=== PATIENT | male | born 1945 | race Caucasian/White ===

== ENCOUNTER 2016-03-04 10:37 | Outpatient (CLI) | payer MEDICARE | END 2016-03-04 10:38 | disposition home or self-care (01) | DX: Z12.5 Encounter for screening for malignant neoplasm of prostate (principal); F52.21 Male erectile disorder; E03.9 Hypothyroidism, unspecified | CPT/HCPCS: 36415; 84403; 84443; G0103 ==

== ENCOUNTER 2016-03-23 13:37 | Outpatient (CLI) | payer MEDICARE | END 2016-03-23 13:38 | disposition home or self-care (01) | DX: G47.30 Sleep apnea, unspecified (principal); G47.8 Other sleep disorders; G47.10 Hypersomnia, unspecified; R06.83 Snoring; R51 Headache | CPT/HCPCS: 99203; G0463 ==

== ENCOUNTER 2016-04-21 21:46 | Outpatient (CLI) | payer MEDICARE | END 2016-04-21 21:47 | disposition home or self-care (01) | LOC: SC 21:46 | PROVIDERS: ATTEND Internal Medicine Pulmonary Disease | DX: G47.33 Obstructive sleep apnea (adult) (pediatric) (principal); I48.1 Persistent atrial fibrillation | CPT/HCPCS: 95810 ==

== ENCOUNTER 2016-05-03 09:55 | Outpatient (CLI) | payer MEDICARE | END 2016-05-03 09:56 | disposition home or self-care (01) | DX: G47.33 Obstructive sleep apnea (adult) (pediatric) (principal) | CPT/HCPCS: 99213; G0463 ==

== ENCOUNTER 2016-06-28 14:14 | Outpatient (CLI) | payer MEDICARE | END 2016-06-28 14:15 | disposition home or self-care (01) | DX: G47.33 Obstructive sleep apnea (adult) (pediatric) (principal) | CPT/HCPCS: 99213; G0463 ==

== ENCOUNTER 2016-07-22 14:08 | Outpatient (CLI) | payer MEDICARE | END 2016-07-22 14:09 | disposition home or self-care (01) | LOC: SC 14:08 | PROVIDERS: ATTEND Internal Medicine Pulmonary Disease | DX: G47.33 Obstructive sleep apnea (adult) (pediatric) (principal) | CPT/HCPCS: 99213; G0463; 99212 ==

== ENCOUNTER 2016-08-31 13:17 | Outpatient (CLI) | payer MEDICARE | END 2016-08-31 13:18 | disposition home or self-care (01) | LOC: SC 13:17 | PROVIDERS: ATTEND Nurse Practitioner Family | DX: G47.33 Obstructive sleep apnea (adult) (pediatric) (principal) | CPT/HCPCS: 99214; G0463; 99212 ==

== ENCOUNTER 2016-09-02 22:58 | Outpatient (CLI) | payer MEDICARE | END 2016-09-02 22:59 | disposition home or self-care (01) | LOC: SC 22:58 | PROVIDERS: ATTEND Internal Medicine Pulmonary Disease | DX: G47.33 Obstructive sleep apnea (adult) (pediatric) (principal); G47.61 Periodic limb movement disorder; I48.91 Unspecified atrial fibrillation; I49.3 Ventricular premature depolarization; Z68.21 Body mass index [BMI] 21.0-21.9, adult | CPT/HCPCS: 95811 ==

== ENCOUNTER 2017-02-08 08:00 | Outpatient (CLI) | payer MEDICARE | END 2017-02-08 08:01 | disposition home or self-care (01) | LOC: LAB.WCP 08:00 | PROVIDERS: ATTEND Family Medicine | DX: E03.9 Hypothyroidism, unspecified (principal) | CPT/HCPCS: 36415; 84443 ==

== ENCOUNTER 2017-03-15 15:03 | Outpatient (CLI) | payer MEDICARE | END 2017-03-15 15:04 | disposition home or self-care (01) | LOC: SC 15:03 | PROVIDERS: ATTEND Nurse Practitioner Family | DX: G47.33 Obstructive sleep apnea (adult) (pediatric) (principal) | CPT/HCPCS: 99214; G0463; 99212 ==

== ENCOUNTER 2017-04-27 15:26 | Outpatient (CLI) | payer MEDICARE | END 2017-04-27 15:27 | disposition home or self-care (01) | LOC: SC 15:26 | PROVIDERS: ATTEND Nurse Practitioner Family | DX: G47.33 Obstructive sleep apnea (adult) (pediatric) (principal); R06.00 Dyspnea, unspecified | CPT/HCPCS: 99214; G0463; 99212 ==

== ENCOUNTER 2017-07-27 15:14 | Outpatient (CLI) | payer MEDICARE | END 2017-07-27 15:15 | disposition home or self-care (01) | LOC: SC 15:14 | PROVIDERS: ATTEND Nurse Practitioner Family | DX: G47.33 Obstructive sleep apnea (adult) (pediatric) (principal) | CPT/HCPCS: 99214; G0463; 99212 ==

== ENCOUNTER 2017-08-24 15:12 | Outpatient (CLI) | payer MEDICARE | END 2017-08-24 15:13 | disposition home or self-care (01) | LOC: SC 15:12 | PROVIDERS: ATTEND Nurse Practitioner Family | DX: G47.33 Obstructive sleep apnea (adult) (pediatric) (principal); G47.52 REM sleep behavior disorder | CPT/HCPCS: 99214; G0463; 99212 ==

== ENCOUNTER 2017-12-01 13:32 | Outpatient (CLI) | payer MEDICARE | END 2017-12-01 13:33 | disposition home or self-care (01) | LOC: SC 13:32 | PROVIDERS: ATTEND Nurse Practitioner Family | DX: G47.33 Obstructive sleep apnea (adult) (pediatric) (principal); G47.52 REM sleep behavior disorder | CPT/HCPCS: 99214; G0463; 99212 ==

== ENCOUNTER 2018-01-12 14:44 | Outpatient (CLI) | payer MEDICARE ==
[2018-01-12 19:57] LABS: BASOPHILS % (AUTO) 0.5 %; EOSINOPHILS # (AUTO) 0.1 10^3/uL (0.0-0.7); HGB - HEMOGLOBIN 11.8 g/dL (14.0-18.0); LYMPHOCYTES # (AUTO) 1.2 10^3/uL (1.5-3.5); LYMPHOCYTES % (AUTO) 19.2 %; MEAN CORPUSCULAR HEMOGLOBIN 29.5 pg (27.0-31.0); MEAN CORPUSCULAR HGB CONC 31.7 g/dL (32.0-36.0); MEAN CORPUSCULAR VOLUME 93.2 fL (80.0-94.0); MONOCYTES # (AUTO) 0.5 10^3/uL (0.0-1.0); MONOCYTES % (AUTO) 7.4 %; NEUTROPHILS # (AUTO) 4.4 10^3/uL (1.5-6.6); NEUTROPHILS % (AUTO) 71.9 %; PLT - PLATELET COUNT 130 10^3/uL (130-450); RED CELL DISTRIBUTION WIDTH 14.5 % (12.0-15.0); WHITE BLOOD COUNT 6.2 x10^3/uL (4.8-10.8)
[2018-01-12 20:18] LABS: ALBUMIN 4.4 g/dL (3.2-5.5); ALBUMIN/GLOBULIN RATIO 1.5 (1.0-2.2); ALKALINE PHOSPHATASE 103 IU/L (42-121); ALT ALANINE AMINOTRANSFERASE 10 IU/L (10-60); AST ASPARTATE AMINOTRANSFERASE 31 IU/L (10-42); BILIRUBIN,TOTAL 0.8 mg/dL (0.2-1.0); BUN - BLOOD UREA NITROGEN 22 mg/dL (6-20); CALCIUM 8.4 mg/dL (8.5-10.3); CARBON DIOXIDE - CO2 30 mmol/L (21-32); CHLORIDE 104 mmol/L (101-111); CHOLESTEROL 157 mg/dL; GFR - MDRD 74 (>89); GLUCOSE 89 mg/dL (70-100); HDL CHOLESTEROL 53 mg/dL; LDL CHOLESTEROL,CALCULATED 93 mg/dL; LDL/HDL RATIO 1.8 (<3.6); SODIUM 139 mmol/L (135-145); TOTAL PROTEIN 7.4 g/dL (6.7-8.2); VLDL CHOLESTEROL 11 mg/dL
== END 2018-01-12 23:59 | disposition home or self-care (01) ==
LOC: LAB.WCP 14:44
PROVIDERS: ATTEND Family Medicine
DX: R63.4 Abnormal weight loss (principal); E03.9 Hypothyroidism, unspecified; R25.1 Tremor, unspecified; J44.9 Chronic obstructive pulmonary disease, unspecified; Z13.220 Encounter for screening for lipoid disorders; Z87.19 Personal history of other diseases of the digestive system; I48.0 Paroxysmal atrial fibrillation; D64.9 Anemia, unspecified
CPT/HCPCS: 36415; 80053; 80061; 83721; 84443; 85025

== ENCOUNTER 2018-04-28 08:00 | Outpatient (CLI) | payer MEDICARE | END 2018-04-28 23:59 | disposition home or self-care (01) | LOC: LAB.WCP 08:00 | PROVIDERS: ATTEND Family Medicine | DX: I48.91 Unspecified atrial fibrillation (principal); Z79.01 Long term (current) use of anticoagulants ==

== ENCOUNTER 2018-05-19 08:00 | Outpatient (CLI) | payer MEDICARE | END 2018-05-19 23:59 | disposition home or self-care (01) | LOC: LAB.WCP 08:00 | PROVIDERS: ATTEND Family Medicine | DX: I48.0 Paroxysmal atrial fibrillation (principal); Z79.01 Long term (current) use of anticoagulants | CPT/HCPCS: 81025 ==

== ENCOUNTER 2018-05-26 08:00 | Outpatient (CLI) | payer MEDICARE | END 2018-05-26 23:59 | disposition home or self-care (01) | LOC: LAB.WCP 08:00 | PROVIDERS: ATTEND Family Medicine | DX: I48.91 Unspecified atrial fibrillation (principal); Z79.01 Long term (current) use of anticoagulants ==

== ENCOUNTER 2018-06-02 08:00 | Outpatient (CLI) | payer MEDICARE | END 2018-06-02 23:59 | disposition home or self-care (01) | LOC: LAB.WCP 08:00 | PROVIDERS: ATTEND Family Medicine | DX: I48.91 Unspecified atrial fibrillation (principal); Z79.01 Long term (current) use of anticoagulants ==

== ENCOUNTER 2018-08-22 08:00 | Outpatient (CLI) | payer MEDICARE | END 2018-08-22 08:01 | disposition home or self-care (01) | LOC: LAB.WCP 08:00 | PROVIDERS: ATTEND Family Medicine | DX: I48.0 Paroxysmal atrial fibrillation (principal); Z79.01 Long term (current) use of anticoagulants ==

== ENCOUNTER 2018-09-15 08:00 | Outpatient (CLI) | payer MEDICARE | END 2018-09-15 23:59 | disposition home or self-care (01) | LOC: LAB.WCP 08:00 | PROVIDERS: ATTEND Family Medicine | DX: I48.91 Unspecified atrial fibrillation (principal); Z79.01 Long term (current) use of anticoagulants ==

== ENCOUNTER 2018-10-06 08:00 | Outpatient (CLI) | payer MEDICARE | END 2018-10-06 23:59 | disposition home or self-care (01) | LOC: LAB.WCP 08:00 | PROVIDERS: ATTEND Family Medicine | DX: I48.91 Unspecified atrial fibrillation (principal); Z79.01 Long term (current) use of anticoagulants ==

== ENCOUNTER 2018-11-10 08:00 | Outpatient (CLI) | payer MEDICARE | END 2018-11-10 23:59 | disposition home or self-care (01) | LOC: LAB.WCP 08:00 | PROVIDERS: ATTEND Family Medicine | DX: I48.91 Unspecified atrial fibrillation (principal); Z79.01 Long term (current) use of anticoagulants ==

== ENCOUNTER 2018-11-27 08:00 | Outpatient (CLI) | payer MEDICARE | END 2018-11-27 23:59 | disposition home or self-care (01) | LOC: LAB.WCP 08:00 | PROVIDERS: ATTEND Family Medicine | DX: R63.4 Abnormal weight loss (principal); Z79.01 Long term (current) use of anticoagulants; I48.91 Unspecified atrial fibrillation | CPT/HCPCS: 36415; 84443 ==

== ENCOUNTER 2018-12-18 08:00 | Outpatient (CLI) | payer MEDICARE | END 2018-12-18 23:59 | disposition home or self-care (01) | LOC: LAB.WCP 08:00 | PROVIDERS: ATTEND Physician Assistant Medical | DX: I48.91 Unspecified atrial fibrillation (principal); Z79.01 Long term (current) use of anticoagulants ==

== ENCOUNTER 2019-01-08 08:00 | Outpatient (CLI) | payer MEDICARE | END 2019-01-08 23:59 | disposition home or self-care (01) | LOC: LAB.WCP 08:00 | PROVIDERS: ATTEND Physician Assistant Medical | DX: I48.91 Unspecified atrial fibrillation (principal); Z79.01 Long term (current) use of anticoagulants ==

== ENCOUNTER 2019-02-05 08:00 | Outpatient (CLI) | payer MEDICARE | END 2019-02-05 23:59 | disposition home or self-care (01) | LOC: LAB.WCP 08:00 | PROVIDERS: ATTEND Physician Assistant Medical | DX: Z79.01 Long term (current) use of anticoagulants (principal); I48.91 Unspecified atrial fibrillation ==

== ENCOUNTER 2019-02-12 08:00 | Outpatient (CLI) | payer MEDICARE | END 2019-02-12 23:59 | disposition home or self-care (01) | LOC: LAB.WCP 08:00 | PROVIDERS: ATTEND Physician Assistant Medical | DX: Z79.01 Long term (current) use of anticoagulants (principal); I48.91 Unspecified atrial fibrillation ==

== ENCOUNTER → 2019-02-19 | Outpatient (CLI) | payer MEDICARE | LOC: LAB.WCP 08:00 | PROVIDERS: ATTEND Physician Assistant Medical | DX: Z79.01 Long term (current) use of anticoagulants (principal); I48.91 Unspecified atrial fibrillation ==

== ENCOUNTER 2019-03-05 08:00 | Outpatient (CLI) | payer MEDICARE | END 2019-03-05 23:59 | disposition home or self-care (01) | LOC: LAB.WCP 08:00 | PROVIDERS: ATTEND Physician Assistant Medical | DX: Z79.01 Long term (current) use of anticoagulants (principal); I48.91 Unspecified atrial fibrillation ==

== ENCOUNTER 2019-03-19 08:00 | Outpatient (CLI) | payer MEDICARE | END 2019-03-19 23:59 | disposition home or self-care (01) | LOC: LAB.WCP 08:00 | PROVIDERS: ATTEND Physician Assistant Medical | DX: I48.91 Unspecified atrial fibrillation (principal); Z79.01 Long term (current) use of anticoagulants ==

== ENCOUNTER 2019-03-27 08:00 | Outpatient (CLI) | payer MEDICARE | END 2019-03-27 23:59 | disposition home or self-care (01) | LOC: LAB.WCP 08:00 | PROVIDERS: ATTEND Family Medicine | DX: I48.91 Unspecified atrial fibrillation (principal); Z79.01 Long term (current) use of anticoagulants ==

== ENCOUNTER 2019-04-03 08:00 | Outpatient (CLI) | payer MEDICARE | END 2019-04-03 23:59 | disposition home or self-care (01) | LOC: LAB.WCP 08:00 | PROVIDERS: ATTEND Family Medicine | DX: Z79.01 Long term (current) use of anticoagulants (principal); I48.91 Unspecified atrial fibrillation ==

== ENCOUNTER 2019-04-20 08:00 | Outpatient (CLI) | payer MEDICARE | END 2019-04-20 23:59 | disposition home or self-care (01) | LOC: LAB.WCP 08:00 | PROVIDERS: ATTEND Family Medicine | DX: I48.91 Unspecified atrial fibrillation (principal); Z79.01 Long term (current) use of anticoagulants ==

== ENCOUNTER 2019-04-27 08:00 | Outpatient (CLI) | payer MEDICARE | END 2019-04-27 23:59 | disposition home or self-care (01) | LOC: LAB.WCP 08:00 | PROVIDERS: ATTEND Family Medicine | DX: I48.91 Unspecified atrial fibrillation (principal); Z79.01 Long term (current) use of anticoagulants ==

== ENCOUNTER 2019-05-03 08:00 | Outpatient (CLI) | payer MEDICARE ==
[2019-05-03 18:23] LABS: BASOPHILS % (AUTO) 0.6 %; EOSINOPHILS # (AUTO) 0.1 10^3/uL (0.0-0.7); EOSINOPHILS % (AUTO) 1.4 %; HGB - HEMOGLOBIN 8.4 g/dL (14.0-18.0); LYMPHOCYTES # (AUTO) 1.2 10^3/uL (1.5-3.5); MEAN CORPUSCULAR HEMOGLOBIN 30.2 pg (27.0-31.0); MEAN CORPUSCULAR HGB CONC 30.7 g/dL (32.0-36.0); MEAN CORPUSCULAR VOLUME 98.6 fL (80.0-94.0); MEAN PLATELET VOLUME 11.4 fL (7.4-11.4); MONOCYTES # (AUTO) 0.5 10^3/uL (0.0-1.0); MONOCYTES % (AUTO) 7.6 %; NEUTROPHILS # (AUTO) 4.7 10^3/uL (1.5-6.6); NEUTROPHILS % (AUTO) 71.1 %; PLT - PLATELET COUNT 192 10^3/uL (130-450); RED BLOOD COUNT 2.78 10^6/uL (4.70-6.10); RED CELL DISTRIBUTION WIDTH 14.6 % (12.0-15.0); WHITE BLOOD COUNT 6.5 x10^3/uL (4.8-10.8)
[2019-05-03 18:42] LABS: % IRON SATURATION 12 % (20-50); IRON 39 ug/dL (45-182); TOTAL IRON BINDING CAPACITY 326 ug/dL (250-450); TRANSFERRIN 233 mg/dL (180-329)
== END 2019-05-03 23:59 | disposition home or self-care (01) ==
LOC: LAB.WCP 08:00
PROVIDERS: ATTEND Family Medicine
DX: K92.2 Gastrointestinal hemorrhage, unspecified (principal)
CPT/HCPCS: 36415; 82728; 83540; 84466; 85025

== ENCOUNTER 2019-05-08 08:00 | Outpatient (CLI) | payer MEDICARE | END 2019-05-08 23:59 | disposition home or self-care (01) | LOC: DI.WCP 08:00 | PROVIDERS: ATTEND Family Medicine | DX: Z53.9 Procedure and treatment not carried out, unspecified reason (principal) ==

== ENCOUNTER 2019-06-01 08:00 | Outpatient (CLI) | payer MEDICARE | END 2019-06-01 23:59 | disposition home or self-care (01) | LOC: LAB.WCP 08:00 | PROVIDERS: ATTEND Family Medicine | DX: I48.91 Unspecified atrial fibrillation (principal); Z79.01 Long term (current) use of anticoagulants ==

== ENCOUNTER 2019-06-29 08:00 | Outpatient (CLI) | payer MEDICARE | END 2019-06-29 23:59 | disposition home or self-care (01) | LOC: LAB.WCP 08:00 | PROVIDERS: ATTEND Registered Nurse | DX: I48.91 Unspecified atrial fibrillation (principal); Z79.01 Long term (current) use of anticoagulants ==

== ENCOUNTER 2019-08-03 08:00 | Outpatient (CLI) | payer MEDICARE | END 2019-08-03 23:59 | disposition home or self-care (01) | LOC: LAB.WCP 08:00 | PROVIDERS: ATTEND Family Medicine | DX: I48.91 Unspecified atrial fibrillation (principal); Z79.01 Long term (current) use of anticoagulants ==

== ENCOUNTER 2019-08-06 15:05 | Outpatient (CLI) | payer MEDICARE ==
--- NOTE | 2019-08-06 16:35 | XRAY Report ---
PROCEDURE: Hand 3 View LT INDICATIONS: CONTUSION OF LEFT HAND TECHNIQUE: 3 views of the hand(s) acquired. COMPARISON: None FINDINGS: Bones: There is dorsal dislocation/high-grade subluxation at the third PIP joint. No gross acute frac ture is seen. Osteoarthritic changes are noted throughout left hand and wrist joints. No suspicious bony lesions. Soft tissues: No suspicious soft tissue calcifications. Soft tissue swelling surrounding the third PIP joint is seen. IMPRESSION: Dorsal dislocation/high-grade subluxation at the third PIP joint. No gross acute fracture is seen. So ft tissue swelling surrounding the third PIP joint. Osteoarthritis throughout left hand and wrist. Reviewed by: Franc Madden MD on 08/06/2019 4:34 PM PDT Approved by: Franc Madden MD on 08/06/2019 4:34 PM PDT Station ID: [id number]
== END 2019-08-06 15:06 | disposition home or self-care (01) ==
LOC: DI 15:05
PROVIDERS: ATTEND Family Medicine
DX: S63.283A Dislocation of proximal interphalangeal joint of left middle finger, initial encounter (principal); M19.042 Primary osteoarthritis, left hand; M19.032 Primary osteoarthritis, left wrist

== ENCOUNTER 2019-08-10 08:00 | Outpatient (CLI) | payer MEDICARE | END 2019-08-10 23:59 | disposition home or self-care (01) | LOC: LAB.WCP 08:00 | PROVIDERS: ATTEND Family Medicine | DX: I48.91 Unspecified atrial fibrillation (principal); Z79.01 Long term (current) use of anticoagulants ==

== ENCOUNTER 2019-08-22 15:42 | Outpatient (CLI) | payer MEDICARE ==
[2019-08-22 17:33] VITALS: BP 100/60
--- NOTE | 2019-08-22 17:33 | SLEEP CARE CONSULTATION ---
Information from patient questionnaire entered by Mikaela Mares. I have reviewed and concur with the information entered by Mikaela Mares. This document represents the service I personally performed and the decisions made by me, Amita Ho, RN, MSN, [employer]. 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 His neurologist , Dr Mills in [facility] prescribed Klonopin which is controlling most of symptoms. He has started oxygen for symptoms of dyspnea from his COPD and uses day and night. Prescribed by his PCP Dr Ba. He gets his oxygen from [facility] and is set at 2 liters. He has a portable oxygen but it is too heavy to take with him on outings out of house so does not use oxygen outside of home.. His spouse is concerned he needs more oxygen during the day - advised to notify Dr. Ba and she agreed with plan. He fell in the bedroom a couple of weeks ago - saw by PCP and seen by orthopedist for fractured finger. Surgery last week to insert a pin in left middle finger and has a splint in place from hand to elbow. CPAP Compliance Data - Data Reviewed with Patient Average duration of nightly device use: 7h Compliance rate %: 40 (180 days) Current pressure setting (cmH2O): 7.8 Humidity setting: ? Heated hose setting: ? Average residual AHI: 2.6 Average large leak: 2.3 liters per minute Subjective Patient concerns: reports: nasal congestion (mild / does not interfer with CPAP use ), dry mouth, nose, throat (severe dry mouth most days), other (air feels too warm that makes it difficult to use. ). denies: aerophagia, mask discomfort, air blowing in eyes, mask leak noise, condensation in mask/hose, epi staxis Observed to snore while using device: No Current pressure setting perceived as: comfortable On therapy, patient: reports: sleeping better, awakening more refreshed, being more awake and alert during the day, more rested overall. denies: drowsiness while driving (does not drive ) Initial [place] Sleepiness Scale score: 9 Allergies and Home Medications Known drug allergies: No Home medication list reviewed: No (Klonipin added nightly / melatonin. ) Review of Systems Review of systems same as previous: No (Parkinsons worse - uses walker at home and wheelchair out of house. ) Physical Exam Blood Pressure: 100/60 Cuff size: regular Heart Rate: 82 O2 Saturation: 96 Height: 6 ft 0.05 in Weight: 148 lb 9.6 oz Weight change since last visit: lost 17 pounds Body Mass Index: 20.1 BMI Classification: Healthy weight Impression and Plan 1. Obstructive Sleep Apnea-Hypopnea Syndrome, severe, with fair treatment compliance and good apnea control. On CPAP therapy, the patient has better sleep quality and is more rested overall. The patient has been struggling to use the CPAP due to warmth of air. His spouse brought in his CPAP due to his concerns. I checked the CPAP device and changed his humidifier from 1 to auto to see if more comfortable. The heated hose was off. Spouse instructed how to change if needed for comfort and instructed to call [facility] for further assistance in settings adjustmentxia. I will also have [facility] check the humdifier for malfunction to see if it is running too warm so it can be repaired or replaced. Since he is losing weight that his spouse states is due to his Parkinsons, I will change his CPAP pressure to autoCPAP 6-7.8cmH20 to accommodate for weight loss. Current pressure range is comfortable. Patient and spouse states his appetite is good and he eats well. I also reviewed the importance of cleaning his mask more often and his CPAP equipment weekly. Patient currently cleans mask and device intermittently as noted. Patient's apnea severity and rationale for treatment to reduce apnea, improve sleep quality and reduce cardiovascular and cerebrovascular events was reviewed. 2. Hypoxia, due to COPD per patient, currently on 02 at 2 liters of oxygen at home and with CPAP. Thus I will order an overnight pulse oximetry to check effectiveness of nocturnal oxygen setting with CPAP. I also advised patient to discuss a smaller portable oxygen as current one available too large. Thus patient came to office without his oxygen. Pulse oximetry was normal range but patient complained of feeling shortness of breath with his Covid [address]. Spouse states patient continues to have shortness of breath with his oxygen at home and is tempted to increase setting. I advised her to instead contact Dr. Ba for her concerns so setting is appropriate for symptoms. She agreed with plan. * Changeauto CPAP pressure to 6-7.8 cmH2O * overnight pulse oximetry with CPAP * Check humidifier for malfunction * Follow up with Dr. Ba for continued dyspnea and smaller portable O2. * Notify me if snoring with mask or feeling that the pressure is too much or too little * Call this office if any problems using CPAP * Return for follow up in 1-2 months , or sooner if concerns arise Visit Type: In Office Time Spent with Patient (minutes): 40 Provider Statement: I spent 100% of the Face to Face Visit with the patient with greater than 50% spent counseling the patient and coordination of care.
== END 2019-08-22 15:43 | disposition home or self-care (01) ==
LOC: SC 15:42
PROVIDERS: ATTEND Nurse Practitioner Family
DX: G47.33 Obstructive sleep apnea (adult) (pediatric) (principal); R09.02 Hypoxemia; J44.9 Chronic obstructive pulmonary disease, unspecified; Z99.81 Dependence on supplemental oxygen
CPT/HCPCS: 99215; G0463; 99212

== ENCOUNTER 2019-08-27 08:00 | Outpatient (CLI) | payer MEDICARE | END 2019-08-27 23:59 | disposition home or self-care (01) | LOC: LAB.WCP 08:00 | PROVIDERS: ATTEND Family Medicine | DX: I48.91 Unspecified atrial fibrillation (principal); Z79.01 Long term (current) use of anticoagulants ==

== ENCOUNTER 2019-09-03 08:00 | Outpatient (CLI) | payer MEDICARE | END 2019-09-03 23:59 | disposition home or self-care (01) | LOC: LAB.WCP 08:00 | PROVIDERS: ATTEND Family Medicine | DX: I48.91 Unspecified atrial fibrillation (principal); Z79.01 Long term (current) use of anticoagulants ==

== ENCOUNTER 2019-09-24 08:00 | Outpatient (CLI) | payer MEDICARE | END 2019-09-24 23:59 | disposition home or self-care (01) | LOC: LAB.WCP 08:00 | PROVIDERS: ATTEND Family Medicine | DX: I48.0 Paroxysmal atrial fibrillation (principal); Z79.01 Long term (current) use of anticoagulants ==

== ENCOUNTER 2019-11-12 08:00 | Outpatient (CLI) | payer MEDICARE | END 2019-11-12 23:59 | disposition home or self-care (01) | LOC: LAB.WCP 08:00 | PROVIDERS: ATTEND Physician Assistant Medical | DX: Z79.01 Long term (current) use of anticoagulants (principal) ==

== ENCOUNTER 2019-12-10 08:00 | Outpatient (CLI) | payer MEDICARE | END 2019-12-10 23:59 | disposition home or self-care (01) | LOC: LAB.WCP 08:00 | PROVIDERS: ATTEND Family Medicine | DX: Z79.01 Long term (current) use of anticoagulants (principal) ==

== ENCOUNTER 2019-12-12 08:00 | Outpatient (CLI) | payer MEDICARE | END 2019-12-12 23:59 | disposition home or self-care (01) | LOC: LAB.WCP 08:00 | PROVIDERS: ATTEND Family Medicine | DX: Z79.01 Long term (current) use of anticoagulants (principal) ==

== ENCOUNTER 2019-12-31 08:00 | Outpatient (CLI) | payer MEDICARE | END 2019-12-31 23:59 | disposition home or self-care (01) | LOC: LAB.WCP 08:00 | PROVIDERS: ATTEND Internal Medicine | DX: Z79.01 Long term (current) use of anticoagulants (principal) ==

== ENCOUNTER 2020-01-09 08:00 | Outpatient (CLI) | payer MEDICARE | END 2020-01-09 23:59 | disposition home or self-care (01) | LOC: LAB.WCP 08:00 | PROVIDERS: ATTEND Nurse Practitioner Family | DX: Z79.01 Long term (current) use of anticoagulants (principal) ==

== ENCOUNTER 2020-02-01 08:00 | Outpatient (CLI) | payer MEDICARE | END 2020-02-01 23:59 | disposition home or self-care (01) | LOC: LAB.WCP 08:00 | PROVIDERS: ATTEND Internal Medicine | DX: Z79.01 Long term (current) use of anticoagulants (principal) ==

== ENCOUNTER 2020-02-20 08:00 | Outpatient (CLI) | payer MEDICARE | END 2020-02-20 23:59 | disposition home or self-care (01) | LOC: LAB.WCP 08:00 | PROVIDERS: ATTEND Nurse Practitioner | DX: Z79.01 Long term (current) use of anticoagulants (principal) ==

== ENCOUNTER 2020-02-25 08:00 | Outpatient (CLI) | payer MEDICARE | END 2020-02-25 23:59 | disposition home or self-care (01) | LOC: LAB.WCP 08:00 | PROVIDERS: ATTEND Internal Medicine | DX: Z79.01 Long term (current) use of anticoagulants (principal) ==

== ENCOUNTER 2020-03-03 08:00 | Outpatient (CLI) | payer MEDICARE | END 2020-03-03 23:59 | disposition home or self-care (01) | LOC: LAB.WCP 08:00 | PROVIDERS: ATTEND Internal Medicine | DX: I48.91 Unspecified atrial fibrillation (principal) ==

== ENCOUNTER 2020-03-10 08:00 | Outpatient (CLI) | payer MEDICARE | END 2020-03-10 23:59 | disposition home or self-care (01) | LOC: LAB.WCP 08:00 | PROVIDERS: ATTEND Internal Medicine | DX: Z79.01 Long term (current) use of anticoagulants (principal) ==

== ENCOUNTER 2020-03-17 08:00 | Outpatient (CLI) | payer MEDICARE | END 2020-03-17 23:59 | disposition home or self-care (01) | LOC: LAB.WCP 08:00 | PROVIDERS: ATTEND Internal Medicine | DX: Z79.01 Long term (current) use of anticoagulants (principal) ==

== ENCOUNTER 2020-03-31 11:01 | Outpatient (CLI) | payer MEDICARE ==
[2020-03-31 18:22] LABS: BASOPHILS % (AUTO) 0.7 %; EOSINOPHILS # (AUTO) 0.2 10^3/uL (0.0-0.7); HGB - HEMOGLOBIN 11.2 g/dL (14.0-18.0); LYMPHOCYTES # (AUTO) 1.3 10^3/uL (1.5-3.5); LYMPHOCYTES % (AUTO) 30.1 %; MEAN CORPUSCULAR HEMOGLOBIN 29.2 pg (27.0-31.0); MEAN CORPUSCULAR HGB CONC 29.6 g/dL (32.0-36.0); MEAN CORPUSCULAR VOLUME 98.7 fL (80.0-94.0); MEAN PLATELET VOLUME 12.5 fL (7.4-11.4); MONOCYTES # (AUTO) 0.3 10^3/uL (0.0-1.0); MONOCYTES % (AUTO) 6.1 %; NEUTROPHILS # (AUTO) 2.6 10^3/uL (1.5-6.6); NEUTROPHILS % (AUTO) 57.9 %; PLT - PLATELET COUNT 123 10^3/uL (130-450); RED BLOOD COUNT 3.84 10^6/uL (4.70-6.10); RED CELL DISTRIBUTION WIDTH 14.9 % (12.0-15.0); WHITE BLOOD COUNT 4.4 x10^3/uL (4.8-10.8)
[2020-03-31 18:40] LABS: % IRON SATURATION 15 % (20-50); ALBUMIN 4.3 g/dL (3.2-5.5); ALBUMIN/GLOBULIN RATIO 1.3 (1.0-2.2); ALKALINE PHOSPHATASE 113 IU/L (42-121); ALT ALANINE AMINOTRANSFERASE < 10 IU/L (10-60); AST ASPARTATE AMINOTRANSFERASE 28 IU/L (10-42); BILIRUBIN,TOTAL 0.5 mg/dL (0.2-1.0); BUN - BLOOD UREA NITROGEN 39 mg/dL (6-20); CALCIUM 8.4 mg/dL (8.5-10.3); CARBON DIOXIDE - CO2 28 mmol/L (21-32); CHLORIDE 106 mmol/L (101-111); CHOL/HDL RATIO 2.7 (<5.0); CHOLESTEROL 171 mg/dL; CREATININE 1.6 mg/dL (0.6-1.2); GLUCOSE 83 mg/dL (70-100); HDL CHOLESTEROL 63 mg/dL; IRON 54 ug/dL (45-182); LDL CHOLESTEROL,CALCULATED 95 mg/dL; LDL/HDL RATIO 1.5 (<3.6); TOTAL IRON BINDING CAPACITY 361 ug/dL (250-450); TOTAL PROTEIN 7.6 g/dL (6.7-8.2); TRANSFERRIN 258 mg/dL (180-329); VLDL CHOLESTEROL 13 mg/dL
[2020-03-31 18:57] LABS: FERRITIN 93.5 ng/mL (23.9-336.2)
[2020-03-31 20:06] LABS: FREE T4 (FREE THYROXINE) 0.86 ng/dL (0.58-1.64)
== END 2020-03-31 11:02 | disposition home or self-care (01) ==
LOC: LAB.N 11:01
PROVIDERS: ATTEND Internal Medicine
DX: D64.9 Anemia, unspecified (principal); R63.4 Abnormal weight loss; I50.9 Heart failure, unspecified
CPT/HCPCS: 36415; 80053; 80061; 81001; 82607; 82728; 83036; 83540; 83721; 84439; 84443; 84466; 85025; 87086

== ENCOUNTER 2020-04-04 08:00 | Outpatient (CLI) | payer MEDICARE | END 2020-04-04 23:59 | disposition home or self-care (01) | LOC: LAB.WCP 08:00 | PROVIDERS: ATTEND Internal Medicine | DX: Z79.01 Long term (current) use of anticoagulants (principal); I48.0 Paroxysmal atrial fibrillation ==

== ENCOUNTER 2020-05-02 08:00 | Outpatient (CLI) | payer MEDICARE | END 2020-05-02 23:59 | disposition home or self-care (01) | LOC: LAB.WCP 08:00 | PROVIDERS: ATTEND Internal Medicine | DX: I48.91 Unspecified atrial fibrillation (principal); Z79.01 Long term (current) use of anticoagulants ==

== ENCOUNTER 2020-05-07 08:00 | Outpatient (CLI) | payer MEDICARE | END 2020-05-07 23:59 | disposition home or self-care (01) | LOC: LAB.WCP 08:00 | PROVIDERS: ATTEND Internal Medicine | DX: I48.91 Unspecified atrial fibrillation (principal); Z79.01 Long term (current) use of anticoagulants ==

== ENCOUNTER 2020-05-14 08:00 | Outpatient (CLI) | payer MEDICARE | END 2020-05-14 23:59 | disposition home or self-care (01) | LOC: LAB.WCP 08:00 | PROVIDERS: ATTEND Internal Medicine | DX: I48.0 Paroxysmal atrial fibrillation (principal); Z79.01 Long term (current) use of anticoagulants ==

== ENCOUNTER 2020-05-28 08:00 | Outpatient (CLI) | payer MEDICARE | END 2020-05-28 23:59 | disposition home or self-care (01) | LOC: LAB.WCP 08:00 | PROVIDERS: ATTEND Internal Medicine | DX: I48.91 Unspecified atrial fibrillation (principal); Z79.01 Long term (current) use of anticoagulants ==

== ENCOUNTER 2020-06-04 08:00 | Outpatient (CLI) | payer MEDICARE | END 2020-06-04 23:59 | disposition home or self-care (01) | LOC: LAB.WCP 08:00 | PROVIDERS: ATTEND Internal Medicine | DX: I48.91 Unspecified atrial fibrillation (principal); Z79.01 Long term (current) use of anticoagulants ==

== ENCOUNTER 2020-06-13 08:00 | Outpatient (CLI) | payer MEDICARE | END 2020-06-13 23:59 | disposition home or self-care (01) | LOC: LAB.WCP 08:00 | PROVIDERS: ATTEND Internal Medicine | DX: I48.91 Unspecified atrial fibrillation (principal); Z79.01 Long term (current) use of anticoagulants ==

== ENCOUNTER 2020-06-16 13:08 | Outpatient (CLI) | payer MEDICARE | END 2020-06-16 23:59 | disposition critical access hospital (66) | LOC: EMS 13:08 | DX: R47.01 Aphasia (principal); R29.91 Unspecified symptoms and signs involving the musculoskeletal system | CPT/HCPCS: A0425; A0429 ==

== ENCOUNTER 2020-06-16 13:25 | Emergency (ER) | payer MEDICARE ==
[2020-06-16] MEDS ORDERED: IOPAMIDOL-300 100 ML VIAL ONE (13:35)
--- NOTE | 2020-06-16 13:50 | ED Physician Documentation ---
History of Present Illness - Stated complaint Stated Complaint: HEAD INJ - Chief complaint Chief Complaint: Neuro - History obtained from History obtained from: Patient - Additonal information Additional information: 75yM presents as modified trauma and code stroke after falling and hitting his head on coumadin at 11am. he was mentating nromally after but then at 12:45pm had acute onset slurring of speech, R hemiparesis, and L facial droop. further history limited by patient acuity. Review of Systems Unable to obtain: Other (ROS unable to obtain 2/2 patient acuity) PD PAST MEDICAL HISTORY - Present Medications Home Medications: Ambulatory Orders Medication Instructions Recorded Confirmed Atorvastatin [Lipitor] 10 mg PO DAILY 06/16/20 06/16/20 Carbidopa/Levodopa [Carbidopa-Levo 1 each PO DAILY 06/16/20 06/16/20 ER 25-100 Tab] Citalopram Hydrobromide [Celexa] 20 mg PO DAILY 06/16/20 06/16/20 Levothyroxine [Synthroid] 100 mcg PO QDAC 06/16/20 06/16/20 Mirtazapine [Remeron] 15 mg PO DAILY 06/16/20 06/16/20 Pantoprazole [Protonix] 40 mg PO DAILY 06/16/20 06/16/20 Warfarin [Coumadin] 5 mg PO DAILY 06/16/20 06/16/20 dilTIAZem HCL [Diltiazem 24Hr ER 180 mg PO DAILY 06/16/20 06/16/20 (Xr)] - Allergies Allergies/Adverse Reactions: Allergies Allergy/AdvReac Type Severity Reaction Status Date / Time Unable to Assess Allergy Verified 06/16/20 13:37 PD ED PE NORMAL - Vitals Vital signs reviewed: Yes - General General: Other (eye opening to and blinking on command, moving LUE/LLE on command, slurred undiscernable speech. ) - HEENT HEENT: PERRL, EOMI, Moist mucous membranes, Pharynx benign, Other (no visible bruise or laceration to scalp) - Neck Neck: No bony TTP - Cardiac Cardiac: RRR - Respiratory Respiratory: Other (BL breath sounds) - Abdomen Abdomen: Non tender, Non distended - Derm Derm: Normal color, Warm and dry - Extremities Extremities: No deformity - Neuro Neuro: Other (eye opening to and blinking on command, moving LUE/LLE on command, slurred undiscernable speech. see MDM for initial NIHSS) - Psych Psych: Other (eye opening to and blinking on command, moving LUE/LLE on command, slurred undiscernable speech. ) Results - Vitals Vitals: Vital Signs - 24 hr 06/16/20 06/16/20 06/16/20 13:26 14:05 14:07 Heart Rate 87 107 H 88 Respiratory 18 16 16 Rate Blood Pressure 130/78 121/78 130/73 O2 Saturation 97 95 96 06/16/20 06/16/20 06/16/20 14:21 14:23 14:30 Heart Rate 81 96 102 H Respiratory 16 11 L 32 H Rate Blood Pressure 152/84 H 154/84 H 145/74 H O2 Saturation 97 98 100 06/16/20 06/16/20 06/16/20 14:35 14:40 14:45 Heart Rate 107 H 87 81 Respiratory 19 20 20 Rate Blood Pressure 159/90 H 128/85 H 135/80 H O2 Saturation 100 100 100 Oxygen O2 Source Mechanical ventilator - Labs Labs: Laboratory Tests 06/16/20 06/16/20 06/16/20 13:52 14:00 14:07 WBC 5.6 RBC 3.34 L Hgb 10.0 L Hct 31.4 L MCV 94.0 MCH 29.9 MCHC 31.8 L RDW 14.0 Plt Count 112 L MPV 11.5 H Neut # (Auto) 4.3 Lymph # (Auto) 0.7 L [place] # (Auto) 0.4 Eos # (Auto) 0.1 Baso # (Auto) 0.0 Absolute Nucleated RBC 0.00 Nucleated RBC % 0.0 PT INR (Fingerstick) 4.1 H INR APTT Sodium Potassium Chloride Carbon Dioxide Anion Gap BUN Creatinine Estimated GFR (MDRD) Glucose Calcium Total Bilirubin AST ALT Alkaline Phosphatase Total Protein Albumin Globulin Albumin/Globulin Ratio Lipase Nasal Adenovirus (PCR) NOT DETECTED Nasal B. parapertussis DNA (PCR) NOT DETECTED Nasal Coronavir 229E PCR NOT DETECTED Nasal Coronavir HKU1 PCR NOT DETECTED Nasal Coronavir NL63 PCR NOT DETECTED Nasal Coronavir OC43 PCR NOT DETECTED Nasal Enterovir/Rhinovir PCR NOT DETECTED Nasal Influenza B PCR NOT DETECTED Nasal Influenza A PCR NOT DETECTED Nasal Parainfluen 1 PCR NOT DETECTED Nasal Parainfluen 2 PCR NOT DETECTED Nasal Parainfluen 3 PCR NOT DETECTED Nasal Parainfluen 4 PCR NOT DETECTED Nasal RSV (PCR) NOT DETECTED Nasal B.pertussis DNA PCR NOT DETECTED Nasal C.pneumoniae (PCR) NOT DETECTED Vivek Human Metapneumo PCR NOT DETECTED Nasal M.pneumoniae (PCR) NOT DETECTED Nasal SARS-CoV-2 (PCR) NOT DETECTED Ethyl Alcohol 06/16/20 06/16/20 14:07 14:07 WBC RBC Hgb Hct MCV MCH MCHC RDW Plt Count MPV Neut # (Auto) Lymph # (Auto) [place] # (Auto) Eos # (Auto) Baso # (Auto) Absolute Nucleated RBC Nucleated RBC % PT 35.3 H INR (Fingerstick) INR 3.4 H APTT 37.7 H Sodium 143 Potassium 4.4 Chloride 108 Carbon Dioxide 27 Anion Gap 8.0 BUN 41 H Creatinine 1.3 H Estimated GFR (MDRD) 54 L Glucose 126 H Calcium 8.3 L Total Bilirubin 0.8 AST 25 ALT 21 Alkaline Phosphatase 84 Total Protein 7.0 Albumin 4.1 Globulin 2.9 Albumin/Globulin Ratio 1.4 Lipase 29 Nasal Adenovirus (PCR) Nasal B. parapertussis DNA (PCR) Nasal Coronavir 229E PCR Nasal Coronavir HKU1 PCR Nasal Coronavir NL63 PCR Nasal Coronavir OC43 PCR Nasal Enterovir/Rhinovir PCR Nasal Influenza B PCR Nasal Influenza A PCR Nasal Parainfluen 1 PCR Nasal Parainfluen 2 PCR Nasal Parainfluen 3 PCR Nasal Parainfluen 4 PCR Nasal RSV (PCR) Nasal B.pertussis DNA PCR Nasal C.pneumoniae (PCR) Vivek Human Metapneumo PCR Nasal M.pneumoniae (PCR) Nasal SARS-CoV-2 (PCR) Ethyl Alcohol 6.1 Procedures - Intubation Provider: Emergency physician Medications: Etomidate, Rocuronium Blade: Milka (4), Glidescope Tube: Size-enter number (8), Cuffed, Marked at lips-enter cm (24) Route: Oral Confirmation: Direct visualization, Bilateral breath sounds, No abdominal breath sound, Pulse ox, Chest xray Complications: No compications, Other (advanced another 3 cm. et tube was high on initial chest xr. patient now 27 at the lip.) PD MEDICAL DECISION MAKING - ED course ED course: Stroke called called immediately upon arrival to the emergency department. Patient had a fall from standing with positive head trauma on Coumadin at 11 AM with return to baseline. At 12:45 PM he had a witnessed episode of right upper and lower extremity hemiparesis, left facial droop, and mumbling speech. At baseline he is functional, ambulatory with walker and compliant with his ADLs. NIHSS upon arrival 1a 1 1b 2 1c 0 2 0 3 unable to assess (3) 4 2 5a 1 5b 4 6a 1 6b 4 7 0 (paralyzed) 8 2 (unable to respond) 9 3 10 2 11 1 Patient with massive L intracranial hemorrhage on CT. Departure - Departure Disposition: 02 Transfer Acute Care Hosp Clinical Impression: Intracranial bleed Condition: Critical Discharge Date/Time: 06/16/20 14:49
[2020-06-16] MEDS ORDERED: MANNITOL 20% 500 ML IV ONE (13:51)
[2020-06-16] MEDS ORDERED: PHYTONADIONE INJ (ADULT) 10 MG in SODIUM CHLORIDE 0.9% 50 ML IV ONE (13:53)
[2020-06-16] MEDS ORDERED: PROTHROMBIN COMPLEX CONC 500 UNIT VIAL IVP STA (13:54)
[2020-06-16] MEDS ORDERED: ROCURONIUM 50 MG/5 ML VIAL IVP STA (14:01)
[2020-06-16] MEDS ORDERED: ETOMIDATE 40 MG/20 ML VIAL IVP STA (14:01)
--- NOTE | 2020-06-16 14:06 | CT Report ---
PROCEDURE: Head W/O Stroke Protocol INDICATIONS: HEAD TRAUMA, MOD-SEVERE TECHNIQUE: Noncontrast 4.5 mm thick angled axial sections acquired from the foramen magnum to the vertex. For r adiation dose reduction, the following was used: automated exposure control, adjustment of mA and/or kV according to patient size. COMPARISON: None FINDINGS: Image quality: Degraded by patient motion artifact. CSF spaces: Basal cisterns are patent. No extra-axial fluid collections. Brain: there is a large, approximately 8.2 x 5.1 x 4.2 cm acute parenchymal bleed involving the left basal ganglia and left temporal lobe. The left-sided parenchymal bleed surrounded by edema is causin g local mass effect on the left lateral ventricle and approximately 7 mm of gltf-qj-xpsoh subfalcine herniation. There is cerebral volume loss for age, with resultant ventricular and sulcal prominence. There are periventricular and deep white matter chronic small vessel ischemic changes. There is int racranial internal carotid artery atherosclerosis. Skull and face: Calvarium and visualized facial bones appear intact, without suspicious lesions. Sinuses: Visualized sinuses and mastoids are clear. IMPRESSION: 1. 8.2 x 5.1 x 4.2 cm acute left basal ganglia/left temporal lobe parenchymal bleed. 2. Approximate 7 mm of untw-qj-omsvm subfalcine herniation. Findings discussed with Dr. Chacon on 06/16/2020 at 1403 hours. This study fulfills neurological imaging criteria for inclusion or exclusion of acute stroke therapie s based on available published neurological imaging guidelines. Reviewed by: Yanet Neumann MD, PhD on 06/16/2020 2:04 PM PDT Approved by: Yanet Neumann MD, PhD on 06/16/2020 2:04 PM PDT Station ID: [id number]
[2020-06-16 14:12] LABS: BASOPHILS % (AUTO) 0.5 %; EOSINOPHILS # (AUTO) 0.1 10^3/uL (0.0-0.7); EOSINOPHILS % (AUTO) 1.1 %; HCT - HEMATOCRIT 31.4 % (42.0-52.0); LYMPHOCYTES # (AUTO) 0.7 10^3/uL (1.5-3.5); LYMPHOCYTES % (AUTO) 12.9 %; MEAN CORPUSCULAR HEMOGLOBIN 29.9 pg (27.0-31.0); MEAN CORPUSCULAR HGB CONC 31.8 g/dL (32.0-36.0); MEAN PLATELET VOLUME 11.5 fL (7.4-11.4); MONOCYTES # (AUTO) 0.4 10^3/uL (0.0-1.0); MONOCYTES % (AUTO) 7.4 %; NEUTROPHILS # (AUTO) 4.3 10^3/uL (1.5-6.6); NEUTROPHILS % (AUTO) 77.9 %; PLT - PLATELET COUNT 112 10^3/uL (130-450); RED BLOOD COUNT 3.34 10^6/uL (4.70-6.10); WHITE BLOOD COUNT 5.6 x10^3/uL (4.8-10.8)
[2020-06-16 14:16] LABS: INR 3.4 (0.8-1.2); PT - PROTHROMBIN TIME 35.3 secs (9.9-12.6)
--- NOTE | 2020-06-16 14:22 | CT Report ---
PROCEDURE: CERVICAL SPINE WO INDICATIONS: Neck trauma, midline tenderness TECHNIQUE: Noncontrast 3 mm thick sections acquired from the skull base to the T4 level. Sagittal and coronal r eformats were then constructed. For radiation dose reduction, the following was used: automated exp osure control, adjustment of mA and/or kV according to patient size. COMPARISON: None. FINDINGS: Image quality: Excellent. Bones: No fractures or dislocations but there are large bridging osteophytes between cervical verteb ral segments, and convex leftward scoliosis is noted centered at the upper thoracic spine. Interverte bral degenerative disc disease is moderately severe to severe along the mid cervical spine.. Visuali zed superior ribs are intact. Soft tissues: Prevertebral soft tissues are normal in thickness. No paravertebral hematomas. No ap ical pneumothoraces. IMPRESSION: Extensive degenerative disc disease and facet osteoarthritis with large bridging osteophytes along po rtions of the cervical spine and the cervical thoracic region. This reduces the ability of the study to detect nondisplaced fractures. If unusual symptoms persist follow-up by cervical MR scanning may b ecome necessary. Reviewed by: Hector Maldonado MD on 06/16/2020 2:21 PM PDT Approved by: Hector Maldonado MD on 06/16/2020 2:21 PM PDT Station ID: [id number]
[2020-06-16 14:23] LABS: PARTIAL THROMBOPLASTIN TIME 37.7 secs (24.9-33.3)
[2020-06-16 14:26] LABS: ALBUMIN 4.1 g/dL (3.2-5.5); ALBUMIN/GLOBULIN RATIO 1.4 (1.0-2.2); BILIRUBIN,TOTAL 0.8 mg/dL (0.2-1.0); CALCIUM 8.3 mg/dL (8.5-10.3); CREATININE 1.3 mg/dL (0.6-1.2); ETOH - ETHANOL 6.1 mg/dL; POTASSIUM 4.4 mmol/L (3.5-5.0)
[2020-06-16 14:46] VITALS: BP 135/80
--- NOTE | 2020-06-16 14:50 | CT Report ---
PROCEDURE: ANGIO HEAD W/WO INDICATIONS: code stroke CONTRAST: IV CONTRAST: Isovue 300 ml: 80 PO CONTRAST: *NO PO CONTRAST TECHNIQUE: Precontrast 4.5 mm thick angled axial sections acquired from the foramen magnum to the vertex. Afte r the administration of intravenous contrast, 1 mm thick sections acquired through the [place] of [place] is. Postcontrast 4.5 mm thick sections then re-acquired from the foramen magnum to the vertex. 3-di mensional zixmaga-tdbsozorc-gytvqyqaka (MIP) and/or volume rendering reformats were acquired of the c entral intracranial vasculature. For radiation dose reduction, the following was used: automated ex posure control, adjustment of mA and/or kV according to patient size. COMPARISON: CT head 06/16/2020 at 1351 hours. FINDINGS: Image quality: Degraded by patient motion artifact and suboptimal contrast opacification of the cereb ral vasculature. Anterior circulation: Intracranial internal carotid arteries are normal in flow. Atherosclerotic mónica cification is noted in the cavernous and clinoid segments of the internal carotid arteries bilaterall y which causes mild narrowing of the vessels. The flow within the paired anterior cerebral arteries is normal and symmetric. The flow within the middle cerebral arteries is normal and symmetric. The anterior communicating artery is seen. No aneurysms are seen. Posterior circulation: Visualized portions of the vertebral arteries demonstrate normal caliber, and join to form a normal appearing basilar artery. Flow within the posterior cerebral arteries is norm al and symmetric. No aneurysms are seen. Dural sinuses demonstrate normal postcontrast enhancement. CSF spaces: Basal cisterns are patent. No extra-axial fluid collections. Brain: 8.2 x 5.1 x 4.2 cm hematoma involving the left basal ganglia and left temporal lobe is stable compared to 06/16/2020 at 1351 hours. Approximately 7 mm of amgi-bp-bsmwz subfalcine herniation is stab le. Mass effect on the left lateral ventricle is stable. Martin-white matter interface appears intact. Skull and face: Calvarium and facial bones appear intact, without suspicious lesions. Sinuses: Visualized sinuses and mastoids are clear. IMPRESSION: 1. No large vessel occlusion, hemodynamically significant stenosis or vascular dissection. 2. No definite vertebral aneurysm. Please note image quality is degraded by patient motion artifact a nd suboptimal contrast opacification of the cerebral vasculature cerebral aneurysm is not completely excluded by this study. 3. Large left-sided parenchymal hematoma causing approximately 7 mm of chbm-mc-kklrr subfalcine herni ation is stable compared to prior CT scan. Reviewed by: Yanet Neumann MD, PhD on 06/16/2020 2:49 PM PDT Approved by: Yanet Neumann MD, PhD on 06/16/2020 2:49 PM PDT Station ID: [id number]
--- NOTE | 2020-06-16 14:56 | CT Report ---
PROCEDURE: ANGIO NECK W INDICATIONS: code stroke CONTRAST: IV CONTRAST: Isovue 300 ml: 80 PO CONTRAST: *NO PO CONTRAST TECHNIQUE: After the administration of intravenous contrast, 1.5 mm axial sections acquired from the aortic arch to the [place] of [place]. Coronal 3-D maximum intensity projection (MIP) and/or volume rendering ref ormats were then performed. For radiation dose reduction, the following was used: automated exposur e control, adjustment of mA and/or kV according to patient size. COMPARISON: None. FINDINGS: Image quality: Excellent. 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 Th e great vessels otherwise demonstrate a conventional anatomy as they arise from the aortic arch. The origins of the common carotid arteries appear patent. The common carotid arteries demonstrate nathaly l calibers and courses. Origin of the right internal carotid artery is fully patent. Atherosclerotic calcification noted in the origin of the left internal carotid artery which causes less than 50% sten osis of the vessel. Posterior circulation: The origins of the vertebral arteries appear patent. The more superior porti ons of the vertebral arteries demonstrate normal course and caliber. They join to form a normal appe aring basilar artery. Soft tissues: Visualized neck soft tissues demonstrate no suspicious abnormalities. The thyroid gla nd is normal in size. Bones: No suspicious bony lesions. Spine degenerative disc disease and facet arthropathy are noted. Large anterior bridging osteophytes noted in the cervical and upper thoracic spine. Visualized cervic al spine appears normally aligned. IMPRESSION: 1. Less than 50% stenosis of the origin of the left internal carotid artery. 2. Right internal carotid artery is fully patent. 3. Vertebral arteries are fully patent. The estimate of stenosis included in the report of the imaging study was calculated using the NASCET method Reviewed by: Yanet Neumann MD, PhD on 06/16/2020 2:55 PM PDT Approved by: Yanet Neumann MD, PhD on 06/16/2020 2:55 PM PDT Station ID: [id number]
[2020-06-16 15:04] LABS: B. PARAPERTUSSIS- RESP PCR PAN NOT DETECTED; B. PERTUSSIS- RESP PCR PANEL NOT DETECTED; C. PNEUMONIAE- RESP PCR PANEL NOT DETECTED; CORONAVIRUS 229E-RESP PCR NOT DETECTED; CORONAVIRUS HKU1-RESP PCR NOT DETECTED; CORONAVIRUS NL63-RESP PCR NOT DETECTED; CORONAVIRUS OC43-RESP PCR NOT DETECTED; HUMAN METAPNEUMOVIRUS NOT DETECTED; INFLUENZA A- RESP PCR PANEL NOT DETECTED; INFLUENZA B - RESP PCR PANEL NOT DETECTED; M. PNEUMONIAE- RESP PCR PANEL NOT DETECTED; PARAINFLUENZA VIRUS 1 NOT DETECTED; PARAINFLUENZA VIRUS 2 NOT DETECTED; PARAINFLUENZA VIRUS 3 NOT DETECTED; PARAINFLUENZA VIRUS 4 NOT DETECTED; RHINOVIRUS/ENTEROVIRUS NOT DETECTED; RSV- RESP PCR PANEL NOT DETECTED; SARS-CoV-2 -RESP PCR PANEL NOT DETECTED
--- NOTE | 2020-06-16 15:08 | XRAY Report ---
PROCEDURE: Chest 1 View X-Ray INDICATIONS: line placement TECHNIQUE: One view of the chest was acquired. COMPARISON: No recent chest plain film. FINDINGS: Surgical changes and devices: Endotracheal tube in normal position. An esophagogastric tube appears t o extend below the imaging margin. This is located just below the EG junction but the side-port is no t visualized. Valve annulus, likely aortic valve prosthesis noted.. Lungs and pleura: No pleural effusions or pneumothorax. Lungs are edematous, mildly.. Mediastinum: Mediastinal contours appear normal. Heart size is mildly enlarged, without pulmonary v enous congestion. Bones and chest wall: No suspicious bony lesions. Overlying soft tissues appear unremarkable. IMPRESSION: Endotracheal and esophagogastric tube positioning normal. A definite central line overlying the upper chest is not seen. Reviewed by: Hector Maldonado MD on 06/16/2020 3:07 PM PDT Approved by: Hector Maldonado MD on 06/16/2020 3:07 PM PDT Station ID: [id number]
[2020-06-16] MEDS ORDERED: IOPAMIDOL-300 100 ML VIAL IVP ONE (16:37)
== END 2020-06-16 14:49 | disposition short-term general hospital (02) ==
LOC: EDUNIT# → ED 13:25
DX: I62.9 Nontraumatic intracranial hemorrhage, unspecified (principal); S09.90XA Unspecified injury of head, initial encounter; W19.XXXA Unspecified fall, initial encounter; I48.91 Unspecified atrial fibrillation; Z79.01 Long term (current) use of anticoagulants; Z20.822 Contact with and (suspected) exposure to COVID-19
CPT/HCPCS: 31500; 36415; 70450; 70496; 70498; 71045; 72125; 80053; 83690; 85025; 85610; 85730; 87631; 93005; 96365; 96368; 96375; 99285; 99291; 99292; C9132; G0480; J7040; Q9967; 0202U; 80320